=== PATIENT | male | born 1935 | race Caucasian/White ===

== ENCOUNTER → 2019-10-10 14:23 | Outpatient (CLI) | payer MEDICARE, SELFPAY ==
--- NOTE | 2019-10-10 | DI.CT.S_ITS ---
PROCEDURE: CT LUMBAR SPINE WO CON INDICATIONS: Other fracture of sacrum, sequela TECHNIQUE: Noncontrast 3 mm thick sections acquired from the T12 level to the sacrum. Sagittal and coronal reformats were constructed. For radiation dose reduction, the following was used: automated exposure control. COMPARISON: CR, SPINE LUMB 2 OR 3VW, 02/16/2016, 11:30. [facility], CT, CT PEL WO CON, 10/10/2019, 14:30. FINDINGS: Image quality: Excellent. Bones: There is trace retrolisthesis of L2 on L3, L3 on L4, L4-L5 and L5 on S1. Multilevel anterior osteophytes are present throughout the lumbar spine with bridging osteophytes most notable at L2-3 and L3-4, as well as T11-T12. No acute vertebral body compression fractures. No suspicious lytic or blastic bony lesions. There is appearance of cortical fracture along the right lateral sacrum at the level of S3-4, seen on series 2 image 81. No pars defects. Severe disc space narrowing is present throughout the lumbar spine most significant at L2-3, L3-4 and L5-S1. Sclerotic endplate changes are present at L2-3, L3-4 and L4-5. Mild disc bulge is present at L1-L2 including a right foraminal protrusion, L2-3, L3-4, L4-5, L5-S1. There is mild spinal stenosis at L1-L2, L2-3, moderate L3-4, moderate to severe L4-L5. Moderate left foraminal narrowing is present at L1-L2, severe left and moderate right L2-3, severe right and moderate to severe left L3-4, severe right and moderate to severe left L4-L5, severe bilateral L5-S1. Multilevel facet and ligamentum flavum hypertrophy are present. Soft tissues: No retroperitoneal masses or hematomas. Visualized aorta is normal in caliber. IMPRESSION: 1. Multilevel disc bulges. 2. Multilevel spinal stenosis most severe at L4-5 secondary to disc bulge with contributing effect of facet/ligamentum flavum arthropathy. 3. Multilevel foraminal narrowing most severe at L5-S1 secondary to facet arthropathy. 4. Right sacral fracture as above. Dictated by: Leti Metz M.D. on 10/10/2019 at 16:00 Approved by: Leti Metz M.D. on 10/10/2019 at 16:11
--- NOTE | 2019-10-10 | DI.CT.S_ITS ---
PROCEDURE: CT PEL WO CON INDICATIONS: Other fracture of sacrum, sequela TECHNIQUE: Noncontrast 3 mm axial sections acquired through the bony pelvis, with coronal and sagittal reformatting. COMPARISON: [facility], CT, CT LUMBAR SPINE WO CON, 10/10/2019, 14:30. FINDINGS: Image quality: Excellent. Cortical step-off involving the posterior right sacral ala, in keeping with minimally displaced fracture Lower lumbar spondylosis and diffuse facet arthropathy. Mild sacroiliac sclerosis and spurring bilaterally. Diffuse osteopenia. Moderate bilateral hip degeneration. 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 Possible circumferential bladder wall thickening although partially collapsed state may falsely accentuated appearance. Scattered vascular calcifications and incidental colonic diverticulosis. Small bilateral fat containing inguinal hernias. No pelvic free fluid. IMPRESSION: Minimally displaced right posterior sacral ala cortical fracture. Please correlate clinically for age. Dictated by: Samson Aguilar M.D. on 10/10/2019 at 16:40 Approved by: Samson Aguilar M.D. on 10/10/2019 at 16:49
== END ==
PROVIDERS: Referring Provider Nurse Practitioner; Visit Provider Nurse Practitioner
DX: S32.19XS Other fracture of sacrum, sequela (principal); M51.26 Other intervertebral disc displacement, lumbar region; M51.27 Other intervertebral disc displacement, lumbosacral region; M48.061 Spinal stenosis, lumbar region without neurogenic claudication; M48.07 Spinal stenosis, lumbosacral region; M47.816 Spondylosis without myelopathy or radiculopathy, lumbar region; M47.817 Spondylosis without myelopathy or radiculopathy, lumbosacral region; M16.0 Bilateral primary osteoarthritis of hip; K57.90 Diverticulosis of intestine, part unspecified, without perforation or abscess without bleeding; K40.20 Bilateral inguinal hernia, without obstruction or gangrene, not specified as recurrent; X58.XXXS Exposure to other specified factors, sequela
CPT/HCPCS: 72131; 72192